=== PATIENT | female | born 2000 | race Caucasian/White ===

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

== ENCOUNTER 2019-09-16 16:48 | Inpatient (IN) ==
[2019-09-16] MEDS ORDERED: OXYTOCIN 30 UNITS/500 ML BAG IV PRN ×2 (18:25→23:29)
[2019-09-16] MEDS ORDERED: fentaNYL citrate 100 MCG/2 ML VIAL ONE (18:54)
[2019-09-16] MEDS ORDERED: ePHEDrine sulfate 50 MG/ML AMP ONE (18:54)
[2019-09-16 18:55] LABS: Hemoglobin 11.4 g/dL (12.0-16.0); Mean Corpuscular Hemoglobin 27.5 pg (25-34); Mean Corpuscular Volume 81.9 fL (80-100); Platelet Count 185 K/uL (130-400); RDW Coefficient of Variation 14.3 % (11.5-14.5); RDW Standard Deviation 42.4 fL (36.4-46.3); Red Blood Count 4.15 M/uL (4.2-5.4); White Blood Count 11.56 K/uL (4.8-10.8)
[2019-09-16] MEDS ORDERED: fentaNYL 2MCG/ML ROPIV 1.25MG/ML 100 ML BAG EPI ONE (18:55)
[2019-09-16] MEDS ORDERED: BUPIVACAINE 0.25% 30 ML VIAL ONE (18:55)
[2019-09-16] MEDS: LACTATED RINGER'S 1,000 ML IV PRN ×2 (19:04→20:08)
[2019-09-16 19:18] LABS: Mean Corpuscular Hgb Conc 33.5 g/dL (32-36)
[2019-09-16] MEDS ORDERED: INFLUENZA VIRUS QUAD VACCINE 0.5 ML SYR IM ONE (19:45)
[2019-09-16] MEDS ORDERED: INFLUENZA ADMINISTRATION CHARGE ONE (19:45)
--- NOTE | 2019-09-16 19:58 | History and Physical Report ---
DATE OF ADMISSION: 09/16/2019 HISTORY OF PRESENT ILLNESS: The patient is a 18-year-old G2, P1, due date 10/03/2019 making her 37 weeks and 4 days who was seen in the office today and examined and found to be 5 cm, 50% effaced, -1. She was sent to labor and delivery with contractions. On arrival to labor and delivery, she has no shortness of breath, no chills, no fever. Pelvic exam is confirmed; the patient is 5 cm, 75% effaced and jose a 2-4 minutes. The patient is therefore being admitted in anticipation of labor. COURSE: Has been unremarkable. PAST MEDICAL HISTORY: The patient has history of. 1. ADD. 2. Depression. 3. Asthma. PAST SURGICAL HISTORY: None. SOCIAL HISTORY: The patient denies tobacco, drug or alcohol use. FAMILY HISTORY: Noncontributory. PHYSICAL EXAMINATION: GENERAL: Well-developed, well-nourished white female in no acute distress. HEART: S1, S2, regular rhythm and rate. LUNGS: Clear to auscultation bilaterally. ABDOMEN: Gravid. PELVIC: 5, 75, -1 station. EXTREMITIES: No cyanosis, clubbing or edema. ASSESSMENT AND PLAN: A 18-year-old 2, para 1, at 37 weeks and 4 days, in labor. Plan is to admit patient and anticipate vaginal delivery. [facility]
--- NOTE | 2019-09-16 20:08 | Anesthesiology Consultation ---
Date of Service September 16, 2019 Assessment & Plan Chart Review Chart Review: Acceptable Risk for Surgery, Patient NOT seen in Pre Admission Testing and Acceptable Risk for Labor Epidural Consults Requested none ASA ASA2 Proposed Anesthesia Anesthesia Type: Labor Epidural Risk / Benefits Reviewed With: PT / POA / Parent / Guardian, Accepts Plan and I nformed Consent Obtained History Height/Weight Height: 5 ft 5 in Weight: 89.358 kg Allergies Allergy/AdvReac Type Severity Reaction Status Date / Time aloe Allergy Intermediate HIVES Verified 09/16/19 17:28 cat dander Allergy Intermediate ITCHY Verified 09/16/19 17:28 EYES, RUNNY NOSE, SNEEZING dog dander Allergy Intermediate ITCHY Verified 09/16/19 17:28 EYES, RUNNY NOSE, SNEEZING pollen extracts Allergy Intermediate ITCHY Verified 09/16/19 17:28 EYES, RUNNY NOSE, SNEEZING acetaminophen Allergy Mild sweats Verified 09/16/19 17:28 Sulfa (Sulfonamide Allergy Unknown Anaphylaxis Verified 09/16/19 17:28 Antibiotics) Medications Home Medications Medication Instructions Recorded Confirmed Last Taken Flintstones Multi-Vit Gummies 1 tab PO DAILY 09/11/19 09/16/19 09/16/19 07:00 ferrous sulfate [Iron (ferrous 325 mg PO DAILY 09/11/19 09/16/19 09/16/19 07:00 sulfate)] Active Medications Generic Name Dose Route Start Last Admin Trade Name Freq PRN Reason Stop Dose Admin Lactated Ringer's 1,000 mls @ 125 mls/hr 09/16/19 18:25 09/16/19 20:08 Lr IV 09/18/19 18:24 125 mls/hr .Q8H PRN Administration L&D Protocol Protocol NPO Date Last Intake of Fluids: 09/16/19 Time Last Intake of Fluids: 18:30 Date Last Intake of Solids: 09/16/19 Time Last Intake of Solids: 13:00 Past Medical History Medical History Anemia Asthma GERD (gastroesophageal reflux disease) Obese Exercise / Class Metabolic Activity II 4-5 Yardwork/Stairs/Walk up hill Past Anesthesia History No Hx of Anesthesia Complications and No Family Hx of Anesthesia Complications History of PONV No Hx of PONV and No Hx of Motion Sickness Social History Smoking Status: Former smoker tobacco type: cigarettes Hx Alcohol Use: No Hx Substance Use: No substance use type: does not use Physical Exam Vital Signs Last Vital Signs Temp 36.5 C 09/16/19 19:07 Pulse 99 H 09/16/19 20:00 Resp 18 09/16/19 19:07 BP 124/73 09/16/19 19:00 Pulse Ox 99 09/16/19 20:00 Constitutional + obese ENMT Mouth: no dentition abnormality and dentition not poor Thyromental Distance: < 3.5 Finger Breadths Mallampati Class: II Neck normal visual inspection and trachea midline; neck extension not limited Respiratory normal respiratory effort Auscultation: lungs clear to auscultation bilaterally Cardiovascular Rate/Rhythm: regular rate and regular rhythm Heart Sounds: no murmur Vessels: no carotid bruit Musculoskeletal Spine: lumbar spine normal to inspection; normal cervical ROM Neurologic moves all extremities Motor/Sensory: no sensory deficit Psychiatric Orientation: alert and oriented x 3 Testing Laboratory Results 09/16/19 18:45
[2019-09-16] MEDS ORDERED: NALOXONE HCL 1 MG in SODIUM CHLORIDE 0.9% 1000ML 1,000 ML IV PRN (20:34)
[2019-09-16] MEDS ORDERED: ONDANSETRON INJ 2 MG/ML 2 ML VIAL IV PRN (20:34)
[2019-09-16] MEDS ORDERED: ePHEDrine sulfate 50 MG/ML AMP IV PRN (20:34)
[2019-09-16] MEDS ORDERED: PROMETHAZINE HCL 25 MG in SODIUM CHLORIDE 0.9% 50 ML IV PRN (20:34)
[2019-09-16] MEDS ORDERED: NALBUPHINE HCL INJ 10 MG/ML AMP IV PRN (20:34)
[2019-09-16] MEDS ORDERED: DiphenhydrAMINE HCL 50 MG/ML VIAL IV PRN (20:34)
[2019-09-16] MEDS ORDERED: fentaNYL 2MCG/ML ROPIV 1.25MG/ML 100 ML BAG EPI PRN (20:34)
[2019-09-16] MEDS ORDERED: NALOXONE HCL 0.4 MG/1 ML VIAL/CARP IV PRN (20:34)
--- NOTE | 2019-09-16 23:29 | Labor Progress Brief Note ---
Date of Service September 16, 2019 Pt doing well FHR; Cat1 ctx 2-4mins AROM- clear anticipate VD Results & Data Vital Signs (Past 12 Hours) Vital Signs Temp Pulse Resp BP Pulse Ox 09/16/19 23:25 102 H 97 09/16/19 23:22 88 130/75 09/16/19 23:20 94 H 97 09/16/19 23:15 94 H 97 09/16/19 23:10 86 98 09/16/19 23:07 90 119/82 09/16/19 23:05 108 H 98 09/16/19 23:00 89 97 09/16/19 22:55 92 H 97 09/16/19 22:52 98 H 109/64 09/16/19 22:50 79 97 09/16/19 22:45 83 97 09/16/19 22:40 98 H 97 09/16/19 22:38 98 H 118/73 09/16/19 22:35 103 H 99 09/16/19 22:30 90 98 09/16/19 22:25 98 H 98 09/16/19 22:22 90 112/54 L 09/16/19 22:20 84 125/59 L 98 09/16/19 22:15 96 H 97 09/16/19 22:10 95 H 99 09/16/19 22:07 103 H 156/96 H 09/16/19 22:05 91 H 97 09/16/19 22:00 107 H 96 09/16/19 21:55 120 H 97 09/16/19 21:53 121 H 103/70 09/16/19 21:50 126 H 96 09/16/19 21:48 130 H 139/89 09/16/19 21:45 116 H 96 09/16/19 21:40 98 H 97 09/16/19 21:38 113 H 121/72 09/16/19 21:35 103 H 98 09/16/19 21:30 90 97 09/16/19 21:25 105 H 98 09/16/19 21:23 115 H 119/72 09/16/19 21:20 95 H 97 09/16/19 21:15 94 H 98 09/16/19 21:10 116 H 97 09/16/19 21:07 106 H 119/72 09/16/19 21:05 111 H 98 09/16/19 21:00 116 H 98 09/16/19 20:55 113 H 98 09/16/19 20:52 104 H 115/68 09/16/19 20:50 105 H 99 09/16/19 20:46 114 H 108/69 09/16/19 20:45 117 H 99 09/16/19 20:41 114 H 18 112/62 09/16/19 20:40 113 H 99 09/16/19 20:35 127 H 97 09/16/19 20:34 112 H 16 128/61 09/16/19 20:31 114 H 111/67 09/16/19 20:30 108 H 97 09/16/19 20:29 115 H 114/70 09/16/19 20:27 106 H 121/76 09/16/19 20:25 112 H 132/78 99 09/16/19 20:23 96 H 120/90 09/16/19 20:20 96 H 98 09/16/19 20:15 105 H 100 09/16/19 20:10 105 H 100 09/16/19 20:05 89 100 09/16/19 20:00 99 H 99 09/16/19 19:55 101 H 100 09/16/19 19:50 87 99 09/16/19 19:45 92 H 98 09/16/19 19:40 87 99 09/16/19 19:35 96 H 99 09/16/19 19:30 95 H 99 09/16/19 19:25 100 H 98 09/16/19 19:20 103 H 99 09/16/19 19:15 93 H 99 09/16/19 19:07 36.5 C 18 09/16/19 19:00 94 H 124/73 09/16/19 17:24 36.3 C L 16 09/16/19 17:17 90 132/72
[2019-09-17] MEDS: LACTATED RINGER'S 1,000 ML IV PRN (00:55)
[2019-09-17] MEDS ORDERED: METHYLERGONOVINE MALEATE 0.2 MG/ML AMP ONE (01:45)
[2019-09-17] MEDS ORDERED: HYDROCORTISONE ACETATE 25 MG SUPP PR PRN (02:02)
[2019-09-17] MEDS ORDERED: SUPERCREAM 0.870% 15 GM JAR EXT PRN (02:02)
[2019-09-17] MEDS ORDERED: BISACODYL 10 MG SUPP PR PRN (02:02)
[2019-09-17] MEDS ORDERED: OXYTOCIN 30 UNITS/500 ML BAG IV PRN (02:02)
[2019-09-17] MEDS ORDERED: BENZOCAINE 20% AER SPR 82.5 GM CAN EXT PRN (02:02)
[2019-09-17] MEDS ORDERED: DIPHTHERIA/TETANUS/PERTUSSIS 0.5 ML SYR/VIAL IM ONE (02:02)
[2019-09-17] MEDS ORDERED: METHYLERGONOVINE MALEATE 0.2 MG/ML AMP IM ONE (02:02)
[2019-09-17] MEDS ORDERED: miSOPROStol 200 MCG TAB PR ONE (02:02)
[2019-09-17] MEDS: IBUPROFEN 600 MG TAB PO PRN ×3 (07:59→22:47)
[2019-09-17] MEDS: PRENATAL VITAMIN 1 TAB PO SCH (08:00)
[2019-09-17] MEDS: DOCUSATE SODIUM 100 MG CAP PO SCH ×2 (08:00→21:03)
--- NOTE | 2019-09-17 08:09 | Anesthesia Procedure Note ---
Date of Service September 17, 2019 Anesthesia Post Epidural Note Vital Signs Vital Signs: Temp Pulse Resp BP Pulse Ox 37.0 C 105 H 18 126/70 100 09/17/19 04:20 09/17/19 04:20 09/17/19 04:20 09/17/19 04:20 09/17/19 04:20 Pain Intensity Bilateral Lower Abdomen: Pain Intensity: 0 Notes Mental Status: alert / awake / arousable Nausea / Vomiting: adequately controlled Pain: adequately controlled Airway Patency, RR, SpO2: stable & adequate BP & HR: stable & adequate Hydration State: stable & adequate Neuraxial Anesthesia: was administered and sensory block is resolving Anesthetic Complications: no major complications apparent and Pt Satisfied with anesthetic care Epidural: Removed without complications and With tip intact
--- NOTE | 2019-09-17 09:55 | Delivery Summary ---
DATE OF OPERATION: 09/17/2019 The patient delivered a live infant in left occiput anterior presentation with nuchal cord x2 was easily reduced. Infant was delivered and placed on mother's abdomen. Cord was clamped and cut after 1 minute. 's weight is pending. Apgars 9 and 9. Cord blood was obtained. Placenta was spontaneously delivered. Inspection of the placenta shows a normal grossly looking placenta. Inspection of the perineum showed a second-degree midline laceration which was repaired with 2-0 Vicryl in layers. Rectal exam post repair showed good sphincter tone, no sutures are palpated in the rectum. ESTIMATED BLOOD LOSS: 450 mL. There was good hemostasis post repair. Mother and baby are doing well in recovery. All instruments were removed from the vagina including sponges, laps and retractors and accounted for x2. The patient and mother are doing well in recovery. I attest to the content of the Intraoperative Record and any orders documented therein. Any exception s are noted below.
[2019-09-17] MEDS: SERTRALINE HCL 50 MG TABLET PO SCH (10:24)
[2019-09-18 08:21] LABS: Hematocrit (blood only) 30.3 % (37-47); Hemoglobin 10.1 g/dL (12.0-16.0); Mean Corpuscular Hemoglobin 27.6 pg (25-34); Mean Corpuscular Hgb Conc 33.3 g/dL (32-36); Mean Corpuscular Volume 82.8 fL (80-100); Mean Platelet Volume 10.7 fL (7.4-10.4); Platelet Count 164 K/uL (130-400); RDW Coefficient of Variation 14.4 % (11.5-14.5); RDW Standard Deviation 43.1 fL (36.4-46.3); Red Blood Count 3.66 M/uL (4.2-5.4); White Blood Count 9.06 K/uL (4.8-10.8)
[2019-09-18] MEDS: DOCUSATE SODIUM 100 MG CAP PO SCH ×2 (08:32→20:20)
[2019-09-18] MEDS: PRENATAL VITAMIN 1 TAB PO SCH (08:32)
[2019-09-18] MEDS: SERTRALINE HCL 50 MG TABLET PO SCH (08:33)
--- NOTE | 2019-09-18 12:11 | Obstetrical Progress Note ---
Date of Service September 18, 2019 Assessment & Plan (1) normal course: PPD #1 pt doing well 'disch tomorrow Subjective Ambulation: ambulating normally Voiding: no voiding problems Passing Gas:: Yes Diet Tolerance:: regular diet Lochia:: Small Feeding Type:: breast feeding Review of Systems All systems reviewed & are unremarkable except as noted in HPI & below Physical Exam Constitutional WD/WN, vitals as above well developed and well nourished Eyes PERRL, conjunctivae normal, anicteric sclerae Neck trachea midline, no thyromegaly Respiratory normal respiratory effort, lungs clear to auscultation Auscultation: no crackles, no rales and no wheezes Cardiovascular RRR, no murmur, no edema Gastrointestinal (Abdomen) normal bowel sounds, soft, nontender, no hepatosplenomegaly Uterus is below umbilicus Musculoskeletal no cyanosis or clubbing, extremities motor strength 5/5 Skin no rashes, warm and dry Neurologic patellar DTR's 2+ bilat, sensation intact Psychiatric A+Ox3, euthymic affect Genitourinary normal external appearance Results & Data Vital Signs (Past 12 Hours) Vital Signs Temp Pulse Resp BP Pulse Ox 09/18/19 08:10 36.6 C 76 18 111/73 98
[2019-09-18] MEDS ORDERED: BISACODYL 5 MG TABEC PO SCH (20:00)
[2019-09-19] MEDS: DOCUSATE SODIUM 100 MG CAP PO SCH (08:39)
[2019-09-19] MEDS: PRENATAL VITAMIN 1 TAB PO SCH (08:39)
[2019-09-19] MEDS: SERTRALINE HCL 50 MG TABLET PO SCH (08:40)
[2019-09-19] MEDS: IBUPROFEN 600 MG TAB PO PRN (09:21)
--- NOTE | 2019-09-19 12:10 | Obstetrical Progress Note ---
Date of Service September 19, 2019 Assessment & Plan (1) normal course: PPD #1 pt doing well d/c home Results & Data Vital Signs (Past 12 Hours) Vital Signs Temp Pulse Pulse Resp BP BP Pulse Ox 09/19/19 11:43 36.8 C 96 H 97 H 16 129/81 121/76 99 09/19/19 09:00 36.8 C 96 H 16 129/81 99
== END 2019-09-19 14:15 | disposition home or self-care (01) | DRG 807 ==
LOC: OPB 16:48 → 4S1 16:50 → 4S2 09-17 04:20

== ENCOUNTER 2021-03-25 17:50 | Inpatient (IN) ==
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
[2021-03-25 18:37] LABS: Appearance Urine Cloudy (Clear); Bacteria Urine Automated 1+ (Negative); Bilirubin Urine Negative (Negative); Blood Urine 3+ (Negative); Color Urine Yellow; Epithelial Cell Urine Auto >30 /lpf (0-5); Glucose Urine UA Negative (Negative); Ketones Urine Negative (Negative); Leukocyte Esterase Urine 1+ (Negative); Nitrite Urine Negative (Negative); Protein Urine Negative (Negative); RBC Urine Automated 0-4 /hpf (0-4); Specific Gravity Urine 1.015 (1.000-1.030); Urobilinogen Urine Negative (Negative); WBC Urine Automated >30 /hpf (0-5)
[2021-03-25 18:39] LABS: Basophils # (auto) 0.02 K/uL (0-0.2); Basophils % (auto) 0.3 %; Eosinophils % (auto) 2.7 %; Hematocrit (blood only) 38.3 % (37-47); Hemoglobin 12.6 g/dL (12.0-16.0); Immature Granulocytes # (auto) 0.01 K/uL (0.00-0.02); Immature Granulocytes % (auto) 0.1 %; Lymphocytes # (auto) 2.33 K/uL (1.2-3.4); Lymphocytes % (auto) 31.1 %; Mean Corpuscular Hemoglobin 26.4 pg (25-34); Mean Corpuscular Hgb Conc 32.9 g/dL (32-36); Mean Corpuscular Volume 80.3 fL (80-100); Mean Platelet Volume 10.3 fL (7.4-10.4); Monocytes # (auto) 0.83 K/uL (0.11-0.59); Monocytes % (auto) 11.1 %; Neutrophils # (auto) 4.11 K/uL (1.4-6.5); Neutrophils % (auto) 54.7 %; Platelet Count 282 K/uL (130-400); RDW Coefficient of Variation 14.4 % (11.5-14.5); RDW Standard Deviation 42.3 fL (36.4-46.3); Red Blood Count 4.77 M/uL (4.2-5.4)
[2021-03-25 19:08] LABS: Albumin Level 3.7 gm/dl (3.4-5.0); BUN Creatinine Ratio 13.5 (10-20); Calcium 8.7 mg/dl (8.5-10.1); Creatinine Clr Calc Pharmacy 109.4 ml/min; Est GFR (African American) 105.2; Est GFR (Non-African American) 90.8
[2021-03-25 19:10] LABS: Pregnancy Test, Serum Negative (Negative)
[2021-03-25 19:18] LABS: Albumin Globulin Ratio 0.9 (0.9-2); Bilirubin,Total 0.3 mg/dl (0.2-1); Thyroid Stimulating Hormone 2.01 uIu/ml (0.300-4.500); Total Protein 7.7 gm/dl (6.4-8.2)
[2021-03-25 19:22] LABS: Amphetamines+Metham, Urine Neg (Neg); Barbiturates, Urine Neg (Neg); Benzodiazepine, Urine Neg (Neg); Cocaine, Urine Neg (Neg); MDMA (Ecstacy), Urine Neg (Neg); Methadone, Urine Neg (Neg); Opiate, Urine Neg (Neg); Phencyclidine, Urine Neg (Neg)
[2021-03-25 19:25] LABS: Acetaminophen < 2 ug/ml (10-30); Salicylate < 1.7 mg/dl (2.8-20)
[2021-03-25 19:42] LABS: Influenza A virus by PCR Negative (Neg); Influenza B virus by PCR Negative (Neg); RSV by PCR Negative (Neg); SARS CoV2 RNA(COVID-19) InHosp NEGATIVE (Negative)
[2021-03-25] MEDS ORDERED: BISMUTH SUBSALICYLATE LIQD 236 ML PO PRN (22:32)
[2021-03-25] MEDS ORDERED: MAGNESIUM HYDROXIDE SUSP 30 ML UDC PO PRN (22:32)
[2021-03-25] MEDS ORDERED: hydrOXYzine HCl 25 MG TAB PO PRN ×2 (22:32)
[2021-03-25] MEDS ORDERED: SODIUM CHLORIDE 0.65% NA SOLN 45 ML (OCEAN) PRN (22:32)
[2021-03-25] MEDS ORDERED: IBUPROFEN 200 MG TAB PO PRN (22:35)
[2021-03-25] MEDS ORDERED: diazePAM 5 MG TABLET PO ONE (23:36)
[2021-03-26] MEDS: ALUMINUM/MAGNESIUM SUSP 30 ML UDC PO PRN (08:22)
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
[2021-03-26] MEDS ORDERED: MONTELUKAST SODIUM 10 MG TABLET PO SCH (22:00)
--- NOTE | 2021-03-27 15:38 | Psychiatric Progress Note ---
Date of Service March 27, 2021 Impression / Recommendations Impression 20-year-old female with depression with suicidal ideation. Patient will benefit from inpatient hospitalization for safety, stabilization, medication management. (1) Depression with suicidal ideation: The patient was admitted to the [facility] ([facility]) on every 15 minute checks (behavioral with suicide precautions for safety. The patient will participate in group, recreational, and milieu therapies and will be offered additional individual and family sessions as clinically appropriate. 03/27/2021atient agreeable to start Abilify low-dose 2.5 mg p.o. nightly tonight. (2) Substance abuse, binge pattern: The patient's use history suggests problematic substance use. Brief intervention was offered and accepted. Intervention was greater than 5 min in length and included assessing readiness to quit, advice on how to reduce or abstain, and to set a specific goal for this hospitalization. mental health worker will also assist in anticipating barriers to sobriety and in problem-solving for solutions to those problems while arranging for referral to appropriate treatment. The patient is in precontemplation stage with regards to transtheoretical model of change. The patient is advised to decrease consumption due to depressant effects and risk of interaction with prescription medications. The patient agreed to attempt to be sober and will be provided with recovery materials to continue to educate self on how to cope with their condition without abusing substances. Risk Factors Assessment Male: No : Yes Do You Have Access To A Gun?: No Mental Health Diagnoses: Yes Substance Use Disorders: Yes Interval History Chief Complaint "I am doing okay so far". Review of Systems Sleep Information Total Hours of Sleep: 7 Meal Information Percent Meal Consumed - Breakfast: 30 Percent Meal Consumed - Lunch: 100 Percent Meal Consumed - Dinner: 90 Nutrition Comment: Pt stated that her stomach upset. Subjective Subjective Patient was seen & assessed and interval progress reviewed with treatment team nursing and social work Patient reports doing okay on the unit. She is eating most of her meals and reports a good night of sleep. She is precipitating group and interacting appropriately with her peers. She reports some improvement in mood just from being on the unit and away from her social stressors. She did report a somewhat stressful family meeting with her ex-. Supportive therapy offered. Physical Exam Psychiatric Orientation: oriented x 3 Apperance: appropriately dressed Eye Contact: + fair eye contact Motor Behavior: steady gait and station Speech: normal rate/rhythm/volume of speech Affect: + depressed affect and + tearful affect Mood: + depressed mood and + anxious mood Thought Process: goal directed thought process Thought Content: reality based without delusions Suicidal Thoughts: + reports suicidal thoughts Homicidal Thoughts: denies homicidal thoughts Hallucinations: no auditory hallucinations Cognition: recent memory grossly intact Estimated Intelligence: average estimated intelligence Insight: + poor insight Judgement: + poor judgement Vital Signs (Past 24 Hours) Last Vital Signs Temp 36.4 C L 03/27/21 06:37 Pulse 88 03/27/21 06:37 Resp 16 03/27/21 06:37 BP 122/84 03/27/21 06:37 Pulse Ox 98 03/25/21 19:51 Results & Data ([facility]) Current Inpatient Medications Current Inpatient Medications: Current Inpatient Medications Al Hydrox/Mg Hydrox/Simethicone (Aluminum/Magnesium Susp 30 Ml Udc) 30 ml PO Q4H PRN PRN Reason: GI Upset Stop: 04/24/21 22:31 Last Admin: 03/26/21 08:22 Dose: 30 ml Documented by: Aripiprazole (Aripiprazole 5 Mg Tab) 2.5 mg PO HS ZAHRA Stop: 04/26/21 21:59 Bismuth Subsalicylate (Bismuth Subsalicylate Liqd 236 Ml) 15 ml PO PRN PRN PRN Reason: Loose Stool Stop: 04/24/21 22:31 Hydroxyzine HCl (Hydroxyzine Hcl 25 Mg Tab) 50 mg PO HSZ PRN PRN Reason: Insomnia Stop: 04/24/21 22:31 Hydroxyzine HCl (Hydroxyzine Hcl 25 Mg Tab) 25 mg PO Q4H PRN PRN Reason: Anxiety Stop: 04/24/21 22:31 Ibuprofen (Ibuprofen 200 Mg Tab) 400 mg PO Q6H PRN PRN Reason: Pain Stop: 04/24/21 22:34 Last Admin: 03/27/21 08:19 Dose: 400 mg Documented by: Magnesium Hydroxide (Magnesium Hydroxide Susp 30 Ml Udc) 30 ml PO DAILY PRN PRN Reason: Constipation Stop: 04/24/21 22:31 Montelukast Sodium (Montelukast Sodium 10 Mg Tablet) 10 mg PO HS ZAHRA Stop: 04/25/21 21:59 Last Admin: 03/26/21 20:17 Dose: 10 mg Documented by: Sodium Chloride (Sodium Chloride 0.65% Na Soln 45 Ml ([place])) 1 - 2 sprays NA PRN PRN PRN Reason: Nasal Dryness/Congestion Stop: 04/24/21 22:31 Mental Health & Subst Abuse Tx Psychiatrist Name of Psychiatrist: Maira Mello Therapist Name of Therapist: none Yarn Hauler Name of Yarn Hauler: none Post Discharge Appointments Primary Care Physician Name Of Family Doctor: Theo Velazquez Provider Appointment Comment: [facility] office
[2021-03-27] MEDS: ALUMINUM/MAGNESIUM SUSP 30 ML UDC PO PRN (19:46)
[2021-03-27] MEDS: ARIPiprazole 5 MG TAB PO SCH (21:36)
[2021-03-27 22:55] LABS: Marijuana Quant, GCMS Urine 80 ng/mL (<5)
[2021-03-28] MEDS: MONTELUKAST SODIUM 10 MG TABLET PO SCH (08:44)
[2021-03-28] MEDS: ALUMINUM/MAGNESIUM SUSP 30 ML UDC PO PRN (11:01)
--- NOTE | 2021-03-28 16:22 | Psychiatric Progress Note ---
Date of Service March 28, 2021 Impression / Recommendations Impression 20-year-old female with depression with suicidal ideation. Patient will benefit from inpatient hospitalization for safety, stabilization, medication management. (1) Depression with suicidal ideation: The patient was admitted to the [facility] ([facility]) on every 15 minute checks (behavioral with suicide precautions for safety. The patient will participate in group, recreational, and milieu therapies and will be offered additional individual and family sessions as clinically appropriate. 03/28/2021atient tolerating low-dose Abilify well, will augment with antidepressant Lexapro 10 mg p.o. every morning starting tomorrow morning 03/27/2021atient agreeable to start Abilify low-dose 2.5 mg p.o. nightly tonight. (2) Substance abuse, binge pattern: The patient's use history suggests problematic substance use. Brief intervention was offered and accepted. Intervention was greater than 5 min in length and included assessing readiness to quit, advice on how to reduce or abstain, and to set a specific goal for this hospitalization. poultry offal worker will also assist in anticipating barriers to sobriety and in problem-solving for solutions to those problems while arranging for referral to appropriate treatment. The patient is in precontemplation stage with regards to transtheoretical model of change. The patient is advised to decrease consumption due to depressant effects and risk of interaction with prescription medications. The patient agreed to attempt to be sober and will be provided with recovery materials to continue to educate self on how to cope with their condition without abusing substances. Risk Factors Assessment Male: No : Yes Do You Have Access To A Gun?: No Mental Health Diagnoses: Yes Substance Use Disorders: Yes Interval History Chief Complaint I am okay but I still feel anxious at times Review of Systems Sleep Information Total Hours of Sleep: 7.75 Sleep Comments: pt on q-15 minute checks Meal Information Percent Meal Consumed - Breakfast: 100 Percent Meal Consumed - Lunch: 100 Percent Meal Consumed - Dinner: 100 Nutrition Comment: Pt stated that her stomach upset. Subjective Subjective Patient was seen & assessed and interval progress reviewed with treatment team nursing and social work Patient states that the Abilify medication worked well. She states that she is not experiencing increased anger this morning. She does acknowledge occasional anxiety. She is open to the idea of trying the medication to target anxiety specifically. Patient is attending groups and interacting appropriately with peers. No behavior concerns on the unit. Does seem to continue to show poor insight into her marijuana problem. Still endorsing depressed mood but denies any suicidal ideation at this time Physical Exam Psychiatric Orientation: oriented x 3 Apperance: appropriately dressed Eye Contact: + fair eye contact Motor Behavior: steady gait and station Speech: normal rate/rhythm/volume of speech Affect: + depressed affect and + tearful affect Mood: + depressed mood and + anxious mood Thought Process: goal directed thought process Thought Content: reality based without delusions Homicidal Thoughts: denies homicidal thoughts Hallucinations: no auditory hallucinations Cognition: recent memory grossly intact Estimated Intelligence: average estimated intelligence Insight: + poor insight Judgement: + poor judgement Vital Signs (Past 24 Hours) Last Vital Signs Temp 36.3 C L 03/28/21 06:40 Pulse 79 03/28/21 06:41 Resp 16 03/28/21 06:40 BP 124/85 03/28/21 06:41 Pulse Ox 98 03/25/21 19:51 Results & Data ([facility]) Laboratory Results Laboratory Results - last 24 hr 03/25/21 18:15 U Marijuana THC Carboxy 80 H Drug Screen Comment SEE NOTE Current Inpatient Medications Current Inpatient Medications: Current Inpatient Medications Al Hydrox/Mg Hydrox/Simethicone (Aluminum/Magnesium Susp 30 Ml Udc) 30 ml PO Q4H PRN PRN Reason: GI Upset Stop: 04/24/21 22:31 Last Admin: 03/28/21 11:01 Dose: 30 ml Documented by: Aripiprazole (Aripiprazole 5 Mg Tab) 2.5 mg PO HS ZAHRA Stop: 04/26/21 21:59 Last Admin: 03/27/21 21:36 Dose: 2.5 mg Documented by: Bismuth Subsalicylate (Bismuth Subsalicylate Liqd 236 Ml) 15 ml PO PRN PRN PRN Reason: Loose Stool Stop: 04/24/21 22:31 Hydroxyzine HCl (Hydroxyzine Hcl 25 Mg Tab) 50 mg PO HSZ PRN PRN Reason: Insomnia Stop: 04/24/21 22:31 Hydroxyzine HCl (Hydroxyzine Hcl 25 Mg Tab) 25 mg PO Q4H PRN PRN Reason: Anxiety Stop: 04/24/21 22:31 Ibuprofen (Ibuprofen 200 Mg Tab) 400 mg PO Q6H PRN PRN Reason: Pain Stop: 04/24/21 22:34 Last Admin: 03/27/21 08:19 Dose: 400 mg Documented by: Magnesium Hydroxide (Magnesium Hydroxide Susp 30 Ml Udc) 30 ml PO DAILY PRN PRN Reason: Constipation Stop: 04/24/21 22:31 Montelukast Sodium (Montelukast Sodium 10 Mg Tablet) 10 mg PO DAILY ZAHRA Stop: 04/27/21 08:59 Last Admin: 03/28/21 08:44 Dose: 10 mg Documented by: Sodium Chloride (Sodium Chloride 0.65% Na Soln 45 Ml ([place])) 1 - 2 sprays NA PRN PRN PRN Reason: Nasal Dryness/Congestion Stop: 04/24/21 22:31 Mental Health & Subst Abuse Tx Psychiatrist Name of Psychiatrist: Maira Mello Therapist Name of Therapist: Maynor Date of Therapist Appointment: 04/03/21 Time of Therapist Appointment: 1:00pm Therapy Appointment Comment: Initial intake with Dianna Toll Line Repairer Name of Toll Line Repairer: none Post Discharge Appointments Primary Care Physician Name Of Family Doctor: Theo Velazquez Provider Appointment Comment: [facility]
[2021-03-28] MEDS: ARIPiprazole 5 MG TAB PO SCH (21:01)
[2021-03-29] MEDS: MONTELUKAST SODIUM 10 MG TABLET PO SCH (07:52)
[2021-03-29] MEDS: ESCITALOPRAM OXALATE 10 MG TAB PO SCH (07:52)
[2021-03-29 08:07] LABS: Glucose 104 mg/dl (70-99)
[2021-03-29 08:14] LABS: Chol HDL Ratio 3; Cholesterol 148 mg/dl (0-200); HDL Cholesterol 43 mg/dl; LDL Cholesterol Calculated 81 mg/dl; Triglycerides 120 mg/dl (0-150); VLDL Cholesterol 24 mg/dl
[2021-03-29] MEDS: ALUMINUM/MAGNESIUM SUSP 30 ML UDC PO PRN (12:44)
--- NOTE | 2021-03-29 16:20 | Psychiatric Progress Note ---
Date of Service March 29, 2021 Impression / Recommendations Impression 20-year-old female with depression with suicidal ideation. Patient will benefit from inpatient hospitalization for safety, stabilization, medication management. (1) Depression with suicidal ideation: The patient was admitted to the [facility] ([facility] unit) on every 15 minute checks (behavioral with suicide precautions for safety. The patient will participate in group, recreational, and milieu therapies and will be offered additional individual and family sessions as clinically appropriate. 1patient tolerating current regimen well. We will continue with Lexapro 10 mg p.o. every morning Abilify 2.5 mg p.o. nightly 03/28/2021atient tolerating low-dose Abilify well, will augment with antidepressant Lexapro 10 mg p.o. every morning starting tomorrow morning 03/27/2021atient agreeable to start Abilify low-dose 2.5 mg p.o. nightly tonight. (2) Substance abuse, binge pattern: The patient's use history suggests problematic substance use. Brief intervention was offered and accepted. Intervention was greater than 5 min in length and included assessing readiness to quit, advice on how to reduce or abstain, and to set a specific goal for this hospitalization. mud car worker will also assist in anticipating barriers to sobriety and in problem-solving for solutions to those problems while arranging for referral to appropriate treatment. The patient is in precontemplation stage with regards to transtheoretical model of change. The patient is advised to decrease consumption due to depressant effects and risk of interaction with prescription medications. The patient agreed to attempt to be sober and will be provided with recovery materials to continue to educate self on how to cope with their condition without abusing substances. Risk Factors Assessment Male: No : Yes Do You Have Access To A Gun?: No Mental Health Diagnoses: Yes Substance Use Disorders: Yes Interval History Chief Complaint I am feeling better, can I leave tomorrow? Review of Systems Sleep Information Total Hours of Sleep: 8 Sleep Comments: pt on q-15 minute checks Meal Information Percent Meal Consumed - Breakfast: 30 Percent Meal Consumed - Lunch: 100 Percent Meal Consumed - Dinner: 50 Nutrition Comment: Pt stated that her stomach upset. Subjective Subjective Patient was seen & assessed and interval progress reviewed with treatment team nursing and social work Patient reports compliance with medication. No side effects reported or observed. Patient states her mood is improving and she feels less anxious. Patient states that she is looking forward to discharge and feels that her mood has improved while she is here. Seen interacting appropriately with peers and attending groups. Physical Exam Psychiatric Orientation: oriented x 3 Apperance: appropriately dressed Eye Contact: + fair eye contact Motor Behavior: steady gait and station Speech: normal rate/rhythm/volume of speech Affect: + depressed affect and + tearful affect Mood: + depressed mood and + anxious mood Thought Process: goal directed thought process Thought Content: reality based without delusions Suicidal Thoughts: + reports suicidal thoughts Homicidal Thoughts: denies homicidal thoughts Hallucinations: no auditory hallucinations Cognition: recent memory grossly intact Estimated Intelligence: average estimated intelligence Insight: + poor insight Judgement: + poor judgement Vital Signs (Past 24 Hours) Last Vital Signs Temp 36.6 C 03/29/21 06:00 Pulse 83 03/29/21 06:33 Resp 16 03/29/21 06:00 BP 111/67 03/29/21 06:33 Pulse Ox 98 03/25/21 19:51 Results & Data ([facility]) Laboratory Results Laboratory Results - last 24 hr 03/29/21 07:17 Glucose 104 H Triglycerides 120 Cholesterol 148 LDL Cholesterol, Calc 81 VLDL Cholesterol, Calc 24 HDL Cholesterol 43 Cholesterol/HDL Ratio 3 Current Inpatient Medications Current Inpatient Medications: Current Inpatient Medications Al Hydrox/Mg Hydrox/Simethicone (Aluminum/Magnesium Susp 30 Ml Udc) 30 ml PO Q4H PRN PRN Reason: GI Upset Stop: 04/24/21 22:31 Last Admin: 03/29/21 12:44 Dose: 30 ml Documented by: Aripiprazole (Aripiprazole 5 Mg Tab) 2.5 mg PO HS ZAHRA Stop: 04/26/21 21:59 Last Admin: 03/28/21 21:01 Dose: 2.5 mg Documented by: Bismuth Subsalicylate (Bismuth Subsalicylate Liqd 236 Ml) 15 ml PO PRN PRN PRN Reason: Loose Stool Stop: 04/24/21 22:31 Escitalopram Oxalate (Escitalopram Oxalate 10 Mg Tab) 10 mg PO QAM ZAHRA Stop: 04/28/21 08:59 Last Admin: 03/29/21 07:52 Dose: 10 mg Documented by: Hydroxyzine HCl (Hydroxyzine Hcl 25 Mg Tab) 50 mg PO HSZ PRN PRN Reason: Insomnia Stop: 04/24/21 22:31 Hydroxyzine HCl (Hydroxyzine Hcl 25 Mg Tab) 25 mg PO Q4H PRN PRN Reason: Anxiety Stop: 04/24/21 22:31 Ibuprofen (Ibuprofen 200 Mg Tab) 400 mg PO Q6H PRN PRN Reason: Pain Stop: 04/24/21 22:34 Last Admin: 03/27/21 08:19 Dose: 400 mg Documented by: Magnesium Hydroxide (Magnesium Hydroxide Susp 30 Ml Udc) 30 ml PO DAILY PRN PRN Reason: Constipation Stop: 04/24/21 22:31 Montelukast Sodium (Montelukast Sodium 10 Mg Tablet) 10 mg PO DAILY ZAHRA Stop: 04/27/21 08:59 Last Admin: 03/29/21 07:52 Dose: 10 mg Documented by: Sodium Chloride (Sodium Chloride 0.65% Na Soln 45 Ml ([place])) 1 - 2 sprays NA PRN PRN PRN Reason: Nasal Dryness/Congestion Stop: 04/24/21 22:31 Mental Health & Subst Abuse Tx Psychiatrist Name of Psychiatrist: Maira Mello Psychiatrist's Date of Appointment with Psychiatrist: 05/01/21 Time of Appointment with Psychiatrist: 1:20 pm Psychiatric Appointment Comment: [place] [id number] Therapist Name of Therapist: Maynor Therapist's Phone Number: [phone] Date of Therapist Appointment: 04/03/21 Time of Therapist Appointment: 1:00pm Therapy Appointment Comment: Initial intake with Dianna Chemical Plant Operator Supervisor Name of Chemical Plant Operator Supervisor: Blake Duarte Post Discharge Appointments Primary Care Physician Name Of Family Doctor: Theo Velazquez Provider Appointment Comment: [facility]
[2021-03-29] MEDS: ARIPiprazole 5 MG TAB PO SCH (21:18)
[2021-03-30] MEDS: MONTELUKAST SODIUM 10 MG TABLET PO SCH (08:35)
[2021-03-30] MEDS: ALUMINUM/MAGNESIUM SUSP 30 ML UDC PO PRN (08:35)
[2021-03-30] MEDS: ESCITALOPRAM OXALATE 10 MG TAB PO SCH (08:35)
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
== END 2021-03-30 11:48 | disposition home or self-care (01) | DRG 881 ==
LOC: ED 17:50 → 3S 23:09

== ENCOUNTER 2022-03-26 07:30 | Inpatient (IN) ==
[2022-03-26] MEDS ORDERED: OXYTOCIN 30 UNITS/500 ML BAG IV PRN ×3 (07:39→16:57)
[2022-03-26] MEDS ORDERED: DINOPROSTONE 10 MG INSERT PV ONE (07:46)
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
[2022-03-26 08:31] LABS: Hematocrit (blood only) 32.4 % (37-47); Hemoglobin 10.9 g/dL (12.0-16.0); Mean Corpuscular Hemoglobin 27.6 pg (25-34); Mean Corpuscular Hgb Conc 33.6 g/dL (32-36); Mean Platelet Volume 11.4 fL (7.4-10.4); Platelet Count 199 K/uL (130-400); RDW Coefficient of Variation 14.2 % (11.5-14.5); RDW Standard Deviation 42.7 fL (36.4-46.3); Red Blood Count 3.95 M/uL (4.2-5.4); White Blood Count 11.32 K/uL (4.8-10.8)
[2022-03-26] MEDS: LACTATED RINGER'S 1,000 ML IV PRN ×2 (09:15→14:23)
[2022-03-26 09:28] LABS: Albumin Globulin Ratio 1.1 (0.9-2); Albumin Level 3.3 gm/dl (3.4-5.0); BUN Creatinine Ratio 17.7 (10-20); Bilirubin,Total 0.3 mg/dl (0.2-1.0); Calcium 8.5 mg/dl (8.5-10.1); Creatinine Clr Calc Pharmacy 157.3 ml/min; Est GFR (African American) 147.3 ml/min; Est GFR (Non-African American) 127.1 ml/min; Globulin 3.1 gm/dl (2.5-4.0); Potassium 3.7 mmol/L (3.5-5.1); Total Protein 6.4 gm/dl (6.0-8.3)
[2022-03-26 09:37] LABS: Amphetamines+Metham, Urine Neg (Neg); Barbiturates, Urine Neg (Neg); Benzodiazepine, Urine Neg (Neg); Cocaine, Urine Neg (Neg); MDMA (Ecstacy), Urine Neg (Neg); Methadone, Urine Neg (Neg); Opiate, Urine Neg (Neg); Phencyclidine, Urine Neg (Neg)
--- NOTE | 2022-03-26 14:11 | Obstetrical Progress Note ---
Date of Service March 26, 2022 Assessment & Plan Admission and Anticipated Discharge Date Admission Date: March 26, 2022 Subjective Patient is reevaluated. She is still comfortable, did not need epidural for pain. VE: 4/ 60%/ -2, bulging bag, AROM'ed, clear fluid FHR categ I Continue to monitor closely Results & Data ([facility]) Vital Signs (Past 12 Hours) Vital Signs Temp Pulse Resp BP 03/26/22 13:57 92 H 131/75 03/26/22 12:32 113/59 L 03/26/22 12:29 36.7 C 16 03/26/22 11:19 76 129/72 03/26/22 11:00 20 03/26/22 10:23 81 120/75 03/26/22 09:12 101 H 130/75 03/26/22 08:12 37.0 C 20 03/26/22 07:45 96 H 129/85 03/26/22 07:43 37.0 C
[2022-03-26] MEDS ORDERED: SODIUM CHLORIDE 0.9% INJ 10 ML VIAL ONE (14:31)
[2022-03-26] MEDS ORDERED: ePHEDrine sulfate 50 MG/ML AMP ONE (14:31)
[2022-03-26] MEDS ORDERED: fentaNYL citrate 100 MCG/2 ML VIAL ONE (14:31)
[2022-03-26] MEDS ORDERED: BUPIVACAINE 0.25% 30 ML VIAL ONE (14:32)
[2022-03-26] MEDS ORDERED: fentaNYL 2MCG/ML ROPIVACAINE 1.25MG/ML 100 ML BAG EPI ONE (14:32)
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
[2022-03-26] MEDS ORDERED: NALOXONE HCL 0.4 MG/1 ML VIAL/CARP IV PRN (14:56)
[2022-03-26] MEDS ORDERED: NALBUPHINE HCL INJ 10 MG/ML AMP IV PRN (14:56)
[2022-03-26] MEDS ORDERED: NALOXONE HCL 1 MG in SODIUM CHLORIDE 0.9% 1000ML 1,000 ML IV PRN (14:56)
[2022-03-26] MEDS ORDERED: ePHEDrine sulfate 50 MG/ML AMP IV PRN (14:56)
[2022-03-26] MEDS ORDERED: ONDANSETRON INJ 2 MG/ML 2 ML VIAL IV PRN (14:56)
[2022-03-26] MEDS ORDERED: fentaNYL 2MCG/ML ROPIVACAINE 1.25MG/ML 100 ML BAG EPI PRN (14:56)
[2022-03-26] MEDS ORDERED: diphenhydrAMINE 50 MG/ML VIAL IV PRN (14:56)
[2022-03-26] MEDS ORDERED: miSOPROStoL 200 MCG TAB ONE (16:39)
[2022-03-26] MEDS ORDERED: METHYLERGONOVINE MALEATE 0.2 MG/ML AMP ONE (16:40)
[2022-03-26] MEDS ORDERED: ACETAMINOPHEN 325 MG TAB PO PRN (16:57)
[2022-03-26] MEDS ORDERED: bisacodyL 10 MG SUPP PR PRN (16:57)
[2022-03-26] MEDS ORDERED: miSOPROStoL 200 MCG TAB PR ONE (16:57)
[2022-03-26] MEDS ORDERED: METHYLERGONOVINE MALEATE 0.2 MG/ML AMP IM ONE (16:57)
[2022-03-26] MEDS ORDERED: DIPHTHERIA/TETANUS/PERTUSSIS 0.5 ML SYR/VIAL IM ONE (16:57)
[2022-03-26] MEDS ORDERED: BENZOCAINE 20% AER SPR 82.5 GM CAN EXT PRN (16:57)
[2022-03-26] MEDS ORDERED: HYDROCORTISONE ACETATE 25 MG SUPP PR PRN (16:57)
--- NOTE | 2022-03-26 17:51 | Anesthesia Procedure Note ---
Date of Service March 26, 2022 Anesthesia Post Epidural Note Vital Signs Vital Signs: Temp Pulse Resp BP Pulse Ox 36.8 C 78 20 149/58 H 98 03/26/22 16:50 03/26/22 17:36 03/26/22 17:35 03/26/22 17:36 03/26/22 16:39 Notes Mental Status: alert / awake / arousable and participated in evaluation Nausea / Vomiting: adequately controlled Pain: adequately controlled Airway Patency, RR, SpO2: stable & adequate BP & HR: stable & adequate Hydration State: stable & adequate Neuraxial Anesthesia: was administered and sensory block is resolving Anesthetic Complications: no major complications apparent and Pt Satisfied with anesthetic care Epidural: Removed without complications and With tip intact Notes: Epidural site clean, dry and intact. No signs of edema, erythema or bruising at insertion site. Pt instructed to request anesthesia if she has residual lower extremity numbness or if she develops lower extremity pain or weakness, back pain or headache.
[2022-03-26] MEDS: DOCUSATE SODIUM 100 MG CAP PO SCH (21:07)
--- NOTE | 2022-03-26 21:56 | Delivery Summary ---
DATE OF SERVICE: 03/26/2022 DELIVERY NOTE: The patient delivered a live infant in right occiput anterior presentation. There wa s no nuchal cord. was delivered and placed on mother's abdomen. Delayed cord clamp was perfo rmed. Infant handed over to the pediatric team. Apgars 7 and 8. Cord gas and cord blood was obtaine d. Placenta was spontaneously delivered. Inspection of the placenta shows a normal-looking placenta with 3-vessel cord. Inspection of the perineum showed no lacerations or tears. Estimated blood loss was ____ mL. Baby is doing well, so is mother. All instruments were removed fro m the vagina and accounted for x2 including sponges, needles, and retractors. Both are in recovery. Job ID: [id number]
[2022-03-27] MEDS: DOCUSATE SODIUM 100 MG CAP PO SCH (07:55)
[2022-03-27] MEDS ORDERED: PRENATAL VITAMIN 1 TAB PO SCH (08:00)
[2022-03-27] MEDS: IBUPROFEN 600 MG TAB PO PRN ×2 (08:01→14:02)
--- NOTE | 2022-03-27 09:54 | Obstetrical Progress Note ---
Date of Service March 27, 2022 Subjective Ambulation: ambulating normally Voiding: no voiding problems Passing Gas:: Yes Diet Tolerance:: regular diet Lochia:: Small Feeding Type:: breast feeding Current Pain Level(1-10): 0 doing well. plans for d/c later tonight Physical Exam Constitutional WD/WN, vitals as above abdomen soft and non-tender. fundus firm below U. no edema. neg Leonel's Results & Data ([facility]) Vital Signs (Past 12 Hours) Vital Signs Temp Pulse Pulse Resp BP Pulse Ox 03/27/22 07:36 36.4 C L 73 18 113/75 98 03/27/22 04:30 36.7 C 69 17 106/64 98 03/27/22 00:10 36.9 C 78 16 114/78 98 Laboratory Results 03/26/22 03/26/22 03/26/22 07:30 08:14 08:14 WBC 11.32 H RBC 3.95 L Hgb 10.9 L Hct 32.4 L MCV 82.0 MCH 27.6 MCHC 33.6 RDW Std Deviation 42.7 RDW Coeff of Ani 14.2 Plt Count 199 MPV 11.4 H Sodium Potassium Chloride Carbon Dioxide Anion Gap BUN Creatinine Est Cr Clr Drug Dosing Est GFR ( Amer) Est GFR (Non-Af Amer) BUN/Creatinine Ratio Glucose Calcium Total Bilirubin AST ALT Alkaline Phosphatase Total Protein Albumin Globulin Albumin/Globulin Ratio Urine Opiates Screen Neg Ur Methadone, Qual Neg Urine Barbiturates Neg Ur Phencyclidine (PCP) Neg U Amphetamin/Meth Scrn Neg MDMA (Ecstasy) Screen Neg U Benzodiazepines Scrn Neg Ur Cocaine Metabolite Neg U Marijuana (THC) Screen Neg Blood Type A Positive Antibody Screen NEGATIVE 03/26/22 08:14 WBC RBC Hgb Hct MCV MCH MCHC RDW Std Deviation RDW Coeff of Ani Plt Count MPV Sodium 133 L Potassium 3.7 Chloride 104 Carbon Dioxide 19 L Anion Gap 10 BUN 11 Creatinine 0.62 Est Cr Clr Drug Dosing 157.3 Est GFR ( Amer) 147.3 Est GFR (Non-Af Amer) 127.1 BUN/Creatinine Ratio 17.7 Glucose 93 Calcium 8.5 Total Bilirubin 0.3 AST 11 L ALT 8 Alkaline Phosphatase 100 Total Protein 6.4 Albumin 3.3 L Globulin 3.1 Albumin/Globulin Ratio 1.1 Urine Opiates Screen Ur Methadone, Qual Urine Barbiturates Ur Phencyclidine (PCP) U Amphetamin/Meth Scrn MDMA (Ecstasy) Screen U Benzodiazepines Scrn Ur Cocaine Metabolite U Marijuana (THC) Screen Blood Type Antibody Screen
[2022-03-27 10:02] LABS: Hematocrit (blood only) 32.9 % (37-47); Hemoglobin 11.1 g/dL (12.0-16.0); Mean Corpuscular Hemoglobin 28.3 pg (25-34); Mean Corpuscular Hgb Conc 33.7 g/dL (32-36); Mean Corpuscular Volume 83.9 fL (80-100); Mean Platelet Volume 11.9 fL (7.4-10.4); Nucleated RBC # (auto) 0.03 K/uL (0-0); Nucleated RBC % (auto) 0.3 %; Platelet Count 165 K/uL (130-400); RDW Coefficient of Variation 14.4 % (11.5-14.5); RDW Standard Deviation 44.2 fL (36.4-46.3); Red Blood Count 3.92 M/uL (4.2-5.4); White Blood Count 10.29 K/uL (4.8-10.8)
[2022-03-27] MEDS ORDERED: bisacodyL 5 MG TABEC PO SCH (20:00)
== END 2022-03-27 17:30 | disposition home or self-care (01) | DRG 807 ==
LOC: 4S1 07:30 → 4E2 21:50

== ENCOUNTER 2022-09-23 11:17 | Inpatient (IN) ==
[2022-09-23 11:49] LABS: Appearance Urine Clear (Clear); Bacteria Urine Automated Negative (Negative); Bilirubin Urine Negative (Negative); Blood Urine Negative (Negative); Color Urine Dark Yellow; Epithelial Cell Urine Auto >30 /lpf (0-5); Glucose Urine UA Negative (Negative); Ketones Urine Trace (Negative); Leukocyte Esterase Urine Trace (Negative); Nitrite Urine Negative (Negative); Protein Urine Negative (Negative); RBC Urine Automated 0-4 /hpf (0-4); Specific Gravity Urine 1.027 (1.000-1.030); Urobilinogen Urine Negative (Negative); pH Urine 5.5 (4.5-7.5)
[2022-09-23 12:11] LABS: Basophils # (auto) 0.05 K/uL (0-0.2); Basophils % (auto) 0.7 %; Eosinophils # (auto) 0.23 K/uL (0-0.50); Eosinophils % (auto) 3.1 %; Hematocrit (blood only) 33.8 % (34.1-44.9); Hemoglobin 11.6 g/dl (12.0-16.0); Immature Granulocytes # (auto) 0.02 K/uL (0.00-0.02); Immature Granulocytes % (auto) 0.3 %; Lymphocytes # (auto) 1.59 K/uL (1.2-3.4); Lymphocytes % (auto) 21.5 %; Mean Corpuscular Hemoglobin 28.4 pg (25.0-34.0); Mean Corpuscular Hgb Conc 34.3 g/dL (32.0-36.0); Mean Corpuscular Volume 82.6 fL (80.0-100.0); Mean Platelet Volume 11.2 fL (9.4-12.3); Monocytes # (auto) 0.38 K/uL (0.24-0.82); Monocytes % (auto) 5.1 %; Neutrophils # (auto) 5.13 K/uL (1.4-6.5); Neutrophils % (auto) 69.3 %; Platelet Count 189 K/uL (130-400); RDW Coefficient of Variation 14.2 % (11.5-14.5); RDW Standard Deviation 42.7 fL (36.4-46.3); Red Blood Count 4.09 M/uL (3.93-5.22)
[2022-09-23 12:37] LABS: Acetaminophen < 3 ug/ml (10-30); Salicylate < 3.0 mg/dl (3.0-30)
[2022-09-23 12:38] LABS: Albumin Globulin Ratio 1.2 (0.9-2); Albumin Level 3.7 gm/dl (3.4-5.0); BUN Creatinine Ratio 12.9 (10-20); Bilirubin,Total 0.3 mg/dl (0.2-1.0); Calcium 8.7 mg/dl (8.5-10.1); Creatinine Clr Calc Pharmacy 138.5 ml/min; Est GFR (African American) 141.5 ml/min; Est GFR (Non-African American) 122.1 ml/min; Globulin 3.2 gm/dl (2.5-4.0); Potassium 3.6 mmol/L (3.5-5.1); Total Protein 6.9 gm/dl (6.0-8.3)
[2022-09-23 12:45] LABS: Amphetamines+Metham, Urine Neg (Neg); Barbiturates, Urine Neg (Neg); Benzodiazepine, Urine Neg (Neg); Cocaine, Urine Neg (Neg); MDMA (Ecstacy), Urine Neg (Neg); Methadone, Urine Neg (Neg); Opiate, Urine Neg (Neg); Phencyclidine, Urine Neg (Neg)
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
--- NOTE | 2022-09-23 15:07 | Ultrasound Report ---
US OB limited CLINICAL HISTORY: for psych admission, 20 week COMPARISON STUDY: Pelvic ultrasound 07/21/2021. FINDINGS: Transabdominal scanning of the fetus was performed with hr representative images submitted. A full anatomic survey was not performed. The fetus is in a breech presentation. There is a posterior p lacenta which appears unremarkable. No subchorionic hematoma. Normal amniotic fluid volume. age is approximately 19 weeks and 5 days based on the femur length of 3.14 cm. heart rate is 147 B PM. IMPRESSION: A 19 week and 5 day intrauterine gestation with a heart rate of 147 BPM. ACT 112: Negative or not required by law. Electronically signed by: Marcus Hickman M.D. 09/23/2022 3:06 PM
[2022-09-23] MEDS ORDERED: BISMUTH SUBSALICYLATE LIQD 236 ML PO PRN (15:38)
[2022-09-23] MEDS ORDERED: diphenhydrAMINE Capsule 25 MG CAP PO PRN (15:38)
[2022-09-23] MEDS ORDERED: MAGNESIUM HYDROXIDE SUSP 30 ML UDC PO PRN (15:38)
[2022-09-23] MEDS ORDERED: SODIUM CHLORIDE 0.65% NA SOLN 45 ML (OCEAN) PRN (15:38)
[2022-09-23] MEDS: ALUMINUM/MAGNESIUM SUSP 30 ML UDC PO PRN (17:07)
[2022-09-24] MEDS: PRENATAL VITAMIN 1 TAB PO SCH (08:37)
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
[2022-09-24] MEDS ORDERED: busPIRone 5 MG TAB PO PRN (12:54)
[2022-09-24] MEDS ORDERED: busPIRone 5 MG TAB PO ONE (12:55)
[2022-09-24] MEDS: ALUMINUM/MAGNESIUM SUSP 30 ML UDC PO PRN (17:16)
[2022-09-25] MEDS: PRENATAL VITAMIN 1 TAB PO SCH (08:34)
[2022-09-25] MEDS: busPIRone 5 MG TAB PO SCH (08:34)
--- NOTE | 2022-09-25 13:02 | Psychiatric Progress Note ---
Date of Service September 25, 2022 Impression / Recommendations Impression Aditya is a 21-year-old female, currently 20 weeks , with a history of complex PTSD which was classified as a variety of diagnoses, including bipolar. She has had an atypical response to antidepressants and mood stabilizers, including SI on last trial of unknown mood stabilizer. MNPR given for safety and ID (minimize COVID risk) 09/25/2022: slight improvement (1) PTSD (post-traumatic stress disorder): (2) Second trimester : Plan 09/25/2022: continue current medication and treatment plan. Safety planning. 09/24/2022: The patient was admitted to the [facility] ([facility] mental health unit) on q15 min checks (behavioral with suicide precautions) for safety. The patient will participate in group, recreational, and milieu therapies and will be offered additional individual and family sessions as clinically appropriate. Risks/benefits/alteranatives reviewed re: Buspar 5 mg po qam with addition 2 doses prn as trial. Benadryl prn if hs/overnight. Inventory Assets Strengths: help seeking, employed Needs: outpatient therapy, case management Suicide Risk Level Suicide Risk Level: Moderate (q15 min suicide checks) Risk Factors Assessment : Yes Do You Have Access To A Gun?: No Mental Health Diagnoses: Yes Previous Psychiatric Hospitalization: Yes Protective Factors Assessment Responsible for Young Children: Yes Employed: Yes ([employer]) Stable Relationships: Yes Interval History Identifying Information ADITYA SULLIVAN is a 21-year-old F who currently lives in [place], has a history of 2 prior inpatient admits, and was admitted on 09/23/22 15:03 on a 201 voluntary commitment for SI with plan. Chief Complaint "I'm starting to feel less anxious". Review of Systems Sleep Information Total Hours of Sleep: 6 Meal Information Percent Meal Consumed - Breakfast: 100 Percent Meal Consumed - Lunch: 95 Percent Meal Consumed - Dinner: 50 Subjective Subjective Patient was seen & assessed and interval progress reviewed with treatment team. She was appropriate in discussing missing her 6 month old after their facetime last night. She denies feeling suicidal last pm, focussed on connecting with an outpatient provider to meet her needs longer term. Good meeting with partner though she was concerned prior to the meeting that he doesn't understand her triggers, etc. Reported 1 minor panic attack last pm that talked through with staff. Has only had 2 doses of bupar but feels helping. Physical Exam Psychiatric Orientation: alert and oriented x 3 Apperance: appropriately dressed and appropriately groomed Eye Contact: good eye contact Motor Behavior: no abnormal motor movements Speech: normal rate/rhythm/volume of speech Affect: + depressed affect Mood: + depressed mood Thought Process: goal directed thought process Thought Content: reality based without delusions Suicidal Thoughts: denies suicidal thoughts Homicidal Thoughts: denies homicidal thoughts Hallucinations: no auditory hallucinations and no visual hallucinations Cognition: attention grossly intact and language grossly intact Estimated Intelligence: consistent with education level Insight: + limited insight Judgement: + limited judgement Vital Signs (Past 24 Hours) Last Vital Signs Temp 36.8 C 09/25/22 06:43 Pulse 80 09/25/22 06:44 Resp 16 09/25/22 06:43 BP 122/80 09/25/22 06:44 Pulse Ox 100 09/23/22 15:40 O2 Del Method 09/23/22 15:40 Results & Data ([facility]) Current Inpatient Medications Current Inpatient Medications: Current Inpatient Medications Al Hydrox/Mg Hydrox/Simethicone (Aluminum/Magnesium Susp 30 Ml Udc) 30 ml PO Q4H PRN PRN Reason: GI Upset Stop: 10/23/22 15:37 Last Admin: 09/24/22 17:16 Dose: 30 ml Bismuth Subsalicylate (Bismuth Subsalicylate Liqd 236 Ml) 15 ml PO PRN PRN PRN Reason: Loose Stool Stop: 10/23/22 15:37 Buspirone HCl (Buspirone 5 Mg Tab) 5 mg PO QAM ZAHRA Stop: 10/25/22 08:59 Last Admin: 09/25/22 08:34 Dose: 5 mg Buspirone HCl (Buspirone 5 Mg Tab) 5 mg PO Q6 PRN PRN Reason: Anxiety Stop: 10/24/22 17:59 Diphenhydramine HCl (Diphenhydramine Capsule 25 Mg Cap) 25 mg PO Q6 PRN PRN Reason: Anxiety Stop: 10/23/22 15:37 Magnesium Hydroxide (Magnesium Hydroxide Susp 30 Ml Udc) 30 ml PO DAILY PRN PRN Reason: Constipation Stop: 10/23/22 15:37 Prenat Multivit/[place]/Iron/Folic Ac ( Vitamin 1 Tab) 1 tab PO QAM ZAHRA Stop: 10/24/22 08:59 Last Admin: 09/25/22 08:34 Dose: 1 tab Sodium Chloride (Sodium Chloride 0.65% Na Soln 45 Ml ([place])) 1 - 2 sprays NA PRN PRN PRN Reason: Nasal Dryness/Congestion Stop: 10/23/22 15:37 Mental Health & Subst Abuse Tx Therapist Name of Therapist: Wait list @ [facility] Post Discharge Appointments Primary Care Physician Name Of Family Doctor: Monica Specialist Name of Specialist: [facility] Phone Number for Specialist: [phone] Date of Appointment with Specialist: 09/27/22 Time of Appointment with Specialist: 1:30p for ultrasound with office visit following Specialty Appointment Comment: [address]
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
[2022-09-26] MEDS: PRENATAL VITAMIN 1 TAB PO SCH (08:59)
[2022-09-26] MEDS: busPIRone 5 MG TAB PO SCH (08:59)
[2022-09-26] MEDS: ALUMINUM/MAGNESIUM SUSP 30 ML UDC PO PRN (12:44)
== END 2022-09-26 15:26 | disposition home or self-care (01) | DRG 832 ==
LOC: EDSEX → ED 11:17 → 3S 15:00

== ENCOUNTER 2023-02-05 14:54 | Inpatient (IN) ==
[2023-02-05] MEDS ORDERED: LIDOCAINE 1% LOCAL 20 ML VIAL INFIL PRN (15:22)
[2023-02-05] MEDS ORDERED: LACTATED RINGER'S 1,000 ML IV PRN (15:22)
[2023-02-05] MEDS ORDERED: OXYTOCIN 30 UNITS/500 ML BAG IV PRN ×3 (15:22→19:20)
[2023-02-05 16:12] LABS: Hematocrit (blood only) 31.7 % (37.0-47.0); Hemoglobin 10.8 g/dl (12.0-16.0); Mean Corpuscular Hemoglobin 27.6 pg (25.0-34.0); Mean Corpuscular Hgb Conc 34.1 g/dL (32.0-36.0); Mean Corpuscular Volume 80.9 fL (80.0-100.0); Mean Platelet Volume 11.4 fL (9.4-12.4); Platelet Count 191 K/uL (130-400); RDW Coefficient of Variation 13.6 % (11.5-14.5); RDW Standard Deviation 39.8 fL (36.4-46.3); Red Blood Count 3.92 M/uL (4.20-5.40); White Blood Count 9.31 K/ul (4.8-10.8)
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
--- NOTE | 2023-02-05 17:50 | Obstetrical Progress Note ---
Date of Service February 05, 2023 Assessment & Plan Admission and Anticipated Discharge Date Admission Date: February 05, 2023 Subjective Patient is reevaluated. She has oxytocin running and start to feel contractions every 2 to 4 minutes, they are not very painful yet. Vaginal exam: 5- 60%/ -2, AROM'ed, clear fluid FHR categ I Continue to monitor closely Results & Data Vital Signs (Past 12 Hours) Vital Signs Temp Pulse Resp BP 02/05/23 17:46 90 128/83 02/05/23 17:31 88 132/84 02/05/23 17:16 95 H 18 133/83 02/05/23 17:00 85 20 126/80 02/05/23 15:13 36.9 C 88 20 132/81
--- NOTE | 2023-02-05 19:00 | Obstetrical Progress Note ---
Date of Service February 05, 2023 Assessment & Plan Admission and Anticipated Discharge Date Admission Date: February 05, 2023 Subjective Patient is getting more painful and feels pressure. Denies epidural for pain. VE; 7/ 80%/ 0, head well applied to cervix FHR categ I [place]: ctxs q 1-2 min Continue to monitor Results & Data Vital Signs (Past 12 Hours) Vital Signs Temp Pulse Resp BP 02/05/23 17:53 37.1 C 20 02/05/23 18:00 85 139/76 02/05/23 17:46 90 128/83 02/05/23 17:31 88 132/84 02/05/23 17:16 95 H 18 133/83 02/05/23 17:00 85 20 126/80 02/05/23 15:13 36.9 C 88 20 132/81
[2023-02-05] MEDS ORDERED: ERYTHROMYCIN OP OINT 1 GM PKT ONE (19:09)
[2023-02-05] MEDS ORDERED: BENZOCAINE 20% AER SPR 82.5 GM CAN EXT PRN (19:20)
[2023-02-05] MEDS ORDERED: MEASLES, MUMPS & RUBELLA VIRUS VIAL SQ ONE (19:20)
[2023-02-05] MEDS ORDERED: HYDROCORTISONE ACETATE 25 MG SUPP PR PRN (19:20)
[2023-02-05] MEDS ORDERED: bisacodyL 10 MG SUPP PR PRN (19:20)
[2023-02-05] MEDS ORDERED: oxyCODONE HCL IR 5 MG TAB (IMMEDIATE RELEASE) PO PRN (19:20)
[2023-02-05] MEDS ORDERED: DIPHTHERIA/TETANUS/PERTUSSIS 0.5mL SYR/VIAL (Age 7+yrs) IM ONE (19:20)
--- NOTE | 2023-02-05 19:26 | Obstetrical Progress Note ---
Date of Service February 05, 2023 Assessment & Plan Admission and Anticipated Discharge Date Admission Date: February 05, 2023 Subjective Patient felt pressure and desire to push. Even before she started pushing head was over perineum. The head was delivered without difficulty and then the shoulders were delivered with minimal traction. The baby was handed off to the mother that her mouth and nose were suctioned, the cord was clamped times and cut at 1 minute delay. The baby was vigorously moving and crying at that point. Then the vagina and perineum were checked for lacerations. They were intact. No lacerations were found. The placenta was found to be the vagina, delivered spontaneously as intact and complete. The lower segment was cleared of all clots and debris's, fundus was firm and EBL was 200 mL. Mom and baby tolerated procedure well. Baby was a viable male Apgars 8/9 and weight is pending. No complications happened and I was present during whole procedure. At the end of the procedure the sponge and instrument count was correct x2. Results & Data Vital Signs (Past 12 Hours) Vital Signs Temp Pulse Resp BP 02/05/23 17:53 37.1 C 20 02/05/23 19:21 100 H 148/64 H 02/05/23 18:00 85 139/76 02/05/23 17:46 90 128/83 02/05/23 17:31 88 132/84 02/05/23 17:16 95 H 18 133/83 02/05/23 17:00 85 20 126/80 02/05/23 15:13 36.9 C 88 20 132/81
[2023-02-05] MEDS: IBUPROFEN 600 MG TAB PO PRN (19:41)
[2023-02-05] MEDS: DOCUSATE SODIUM 100 MG CAP PO SCH (21:17)
[2023-02-06 07:02] LABS: Hematocrit (blood only) 28.9 % (37.0-47.0); Hemoglobin 9.8 g/dl (12.0-16.0); Mean Corpuscular Hgb Conc 33.9 g/dL (32.0-36.0); Mean Corpuscular Volume 79.6 fL (80.0-100.0); Mean Platelet Volume 11.7 fL (9.4-12.4); Platelet Count 205 K/uL (130-400); RDW Coefficient of Variation 13.6 % (11.5-14.5); RDW Standard Deviation 39.1 fL (36.4-46.3); Red Blood Count 3.63 M/uL (4.20-5.40)
[2023-02-06] MEDS: DOCUSATE SODIUM 100 MG CAP PO SCH ×2 (07:44→20:33)
[2023-02-06] MEDS: PRENATAL VITAMIN 1 TAB PO SCH (07:44)
[2023-02-06] MEDS ORDERED: FERROUS SULFATE 325 MG TAB PO SCH (08:00)
--- NOTE | 2023-02-06 09:07 | Obstetrical Progress Note ---
Date of Service February 06, 2023 Subjective Ambulation: ambulating normally Voiding: no voiding problems Passing Gas:: Yes Diet Tolerance:: regular diet Lochia:: Small Feeding Type:: breast feeding Current Pain Level(1-10): 0 doing well Physical Exam Constitutional WD/WN, vitals as above Gastrointestinal (Abdomen) Inspection/Auscultation: abdomen normal to inspection abdomen soft and non-tender Musculoskeletal Extremities: extremities normal to inspection Skin no rashes, warm and dry Neurologic patellar DTR's 2+ bilat, sensation intact Psychiatric A+Ox3, euthymic affect Genitourinary no vaginal lesions, no adnexal mass Results & Data Vital Signs (Past 12 Hours) Vital Signs Temp Pulse Pulse Resp BP BP Pulse Ox 02/06/23 07:40 36.6 C 73 18 118/77 97 02/06/23 04:00 36.8 C 73 18 110/74 97 02/06/23 00:00 37.1 C 88 16 109/77 97 02/05/23 22:00 37.1 C 94 H 18 124/84 98 02/05/23 21:17 36.8 C 18 02/05/23 21:17 98 H 125/61 O2 Del Method 02/06/23 07:40 Room Air 02/06/23 04:00 Room Air 02/06/23 00:00 Room Air 02/05/23 22:00 Room Air 02/05/23 21:17 02/05/23 21:17 Laboratory Results Laboratory Results - last 72 hr 02/05/23 02/05/23 02/06/23 15:30 15:54 06:23 WBC 9.31 11.70 H RBC 3.92 L 3.63 L Hgb 10.8 L 9.8 L Hct 31.7 L 28.9 L MCV 80.9 79.6 L MCH 27.6 27.0 MCHC 34.1 33.9 RDW Std Deviation 39.8 39.1 RDW Coeff of Ani 13.6 13.6 Plt Count 191 205 MPV 11.4 11.7 SARS-CoV-2, RNA, NAAT NEGATIVE
[2023-02-06] MEDS: IBUPROFEN 600 MG TAB PO PRN ×2 (11:18→17:15)
[2023-02-06] MEDS ORDERED: bisacodyL 5 MG TABEC PO SCH (20:00)
[2023-02-07] MEDS: IBUPROFEN 600 MG TAB PO PRN ×2 (04:00→08:23)
[2023-02-07 08:01] LABS: Hematocrit (blood only) 29.7 % (37.0-47.0)
[2023-02-07] MEDS: DOCUSATE SODIUM 100 MG CAP PO SCH (08:24)
[2023-02-07] MEDS: PRENATAL VITAMIN 1 TAB PO SCH (08:24)
--- NOTE | 2023-02-07 08:48 | Obstetrical Progress Note ---
Date of Service February 07, 2023 Assessment & Plan Admission and Anticipated Discharge Date Admission Date: February 05, 2023 Subjective Patient is seen and examined. She feels well, no complaints. Ambulating without dizziness Voiding without difficulty Tolerating regular diet with out N&V Bleeding is minimal No fever/ chills/ CP/ SOB/ N&V/ Leg pain Bottle feeding without problems Vital Signs Temp Pulse Resp BP Pulse Ox O2 Del Method 02/07/23 07:45 36.6 C 89 16 120/80 99 Room Air 02/06/23 23:24 36.8 C 89 18 116/75 97 Room Air 02/06/23 20:00 37.2 C 86 16 115/78 98 Room Air 02/06/23 15:45 36.7 C 80 19 112/76 Room Air 02/06/23 11:30 36.7 C 88 18 125/81 98 Room Air Lab Results 02/05/23 02/05/23 02/06/23 Range/Units 15:30 15:54 06:23 WBC 9.31 11.70 H (4.8-10.8) K/ul RBC 3.92 L 3.63 L (4.20-5.40) M/uL Hgb 10.8 L 9.8 L (12.0-16.0) g/dl Hct 31.7 L 28.9 L (37.0-47.0) % MCV 80.9 79.6 L (80.0-100.0) fL MCH 27.6 27.0 (25.0-34.0) pg MCHC 34.1 33.9 (32.0-36.0) g/dL RDW Std Deviation 39.8 39.1 (36.4-46.3) fL RDW Coeff of Ani 13.6 13.6 (11.5-14.5) % Plt Count 191 205 (130-400) K/uL MPV 11.4 11.7 (9.4-12.4) fL SARS-CoV-2, RNA, NAAT NEGATIVE (NEGATIVE) 02/07/23 Range/Units 07:41 WBC (4.8-10.8) K/ul RBC (4.20-5.40) M/uL Hgb 10.0 L (12.0-16.0) g/dl Hct 29.7 L (37.0-47.0) % MCV (80.0-100.0) fL MCH (25.0-34.0) pg MCHC (32.0-36.0) g/dL RDW Std Deviation (36.4-46.3) fL RDW Coeff of Ani (11.5-14.5) % Plt Count (130-400) K/uL MPV (9.4-12.4) fL SARS-CoV-2, RNA, NAAT (NEGATIVE) PE: General: Alert, orientedx3, NAD Abd: soft, NT, fundus firm, below Umbilicus Perineum intact, Lochia rubra minimal Ext; NT, no edema AP: 22 yo s/p , ppd# 2 VSS Afebrile doing well Continue routine care All questions were answered Discussed when to call Desires depo provera before discharge. Understands it may make depression worse. She plans one time dose until she will get Mirena IUD in office. D/C home , f/u in office Results & Data Vital Signs (Past 12 Hours) Vital Signs Temp Pulse Resp BP Pulse Ox O2 Del Method 02/07/23 07:45 36.6 C 89 16 120/80 99 Room Air 02/06/23 23:24 36.8 C 89 18 116/75 97 Room Air
== END 2023-02-07 17:45 | disposition home or self-care (01) | DRG 807 ==
LOC: 4S1 14:54 → 4E2 22:17